=== PATIENT | male | born 1960 | race Caucasian/White ===

== ENCOUNTER 2021-07-04 04:30 | Observation (INO) ==
[2021-07-04] MEDS ORDERED: Naloxone 0.4 MG/ML INJ IVP PRN (08:32)
[2021-07-04] MEDS ORDERED: Acetaminophen 325 MG TABLET PO PRN (08:32)
[2021-07-04] MEDS ORDERED: *HR* HYDROcodone/Acet 5/325 mg TABLET PO PRN (08:32)
[2021-07-04] MEDS ORDERED: *HR* OxyCODONE Immed Rel 5 MG TABLET PO PRN (08:32)
[2021-07-04] MEDS ORDERED: Ondansetron 4 MG/2 ML VIAL IVP PRN (08:32)
[2021-07-04] MEDS ORDERED: Isovue-370 500 ML BOTTLE IVP ONE (08:36)
[2021-07-04] MEDS ORDERED: Benzonatate 100 MG CAPSULE PO PRN (08:52)
[2021-07-04 09:07] LABS: Basophils % 0.1 %; Eosinophils # 0.1 K/mcL (0.0-0.6); Eosinophils % 0.4 %; Hemoglobin 8.2 g/dL (12.9-16.9); Immature Granulocytes % 0.7 % (0-4); Lymphocytes # 0.8 K/mcL (0.6-4.6); Lymphocytes % 5.5 %; Mean Corpuscular HGB Conc 30.4 g/dL (31.6-35.5); Mean Corpuscular Hemoglobin 32.2 pg (28.0-33.3); Mean Corpuscular Volume 105.9 fL (83.0-100.0); Mean Platelet Volume 10.3 fL (9.4-12.4); Monocytes # 0.9 K/mcL (0.0-1.3); Monocytes % 6.7 %; Neutrophils # 12.1 K/mcL (1.6-8.9); Platelet Count 141 K/mcL (140-400); Red Blood Count 2.55 M/mcL (4.19-5.50); Segmented Neutrophils % 86.6 %; White Blood Count 13.9 K/mcL (4.3-11.1)
[2021-07-04] MEDS ORDERED: Megestrol Acetate 400 MG/10 ML UDC PO SCH (09:15)
[2021-07-04] MEDS ORDERED: levoFLOXacin 750 MG/150 ML 750 MG/150 ML BAG IVPB SCH (09:15)
[2021-07-04 09:26] LABS: BUN/Creatinine Ratio 16 (6-26); Blood Urea Nitrogen 8 mg/dL (8-23); Calcium 8.6 mg/dL (8.6-10.3); Carbon Dioxide 31 mEq/L (23-29); Chloride 99 mEq/L (98-107); Glucose 110 mg/dL (70-105); Osmolality,Calculated 279 (280-300); Potassium 3.9 mEq/L (3.5-5.1); Sodium 135 mEq/L (136-145); eGFR For African Americans > 60 (> 60); eGFR For Non-African Americans > 60 (> 60)
[2021-07-04] MEDS ORDERED: 0.9 % Sodium Chloride 1,000 ML IVC SCH (09:30)
[2021-07-04] MEDS ORDERED: Gadolinium Contrast Agent (WT Based) IV PRN (09:43)
[2021-07-04] MEDS: Levalbuterol Neb 0.63 MG/3 ML IH SCH ×2 (10:09→15:33)
[2021-07-04 11:15] VITALS: BP 99/66; PULSE 115; TEMP 98.6; O2SAT 98
[2021-07-04] MEDS ORDERED: *HR* Heparin 5,000 UNIT/ML VIAL SQ SCH (18:00)
== END 2021-07-04 15:46 | disposition short-term general hospital (02) ==
LOC: CDU
PROVIDERS: ADMIT Internal Medicine; ATTEND Internal Medicine